=== PATIENT | female | born 1985 | race Caucasian/White ===

== ENCOUNTER 2016-09-21 12:05 | Day surgery (SDC) | payer BC, OTHER ==
[~2016-09-21 12:05] MED LIST: PRENATAL 19 TA1 EACH PO; PROAIR HFA8.5 GM; SINGULAIR10 M1 PO; XOPENEX HFA15 G1 INH; XYZAL5 M1 PO
[2016-09-21 13:12] LABS: ANION GAP 11 mmol/L (0-20); BLOOD UREA NITROGEN 7 mg/dl (6-24); CALCIUM 8.7 mg/dl (8.5-10.5); CARBON DIOXIDE-VENOUS 25 mmol/L (22-32); CHLORIDE 106 mmol/l (96-110); CREATININE 0.82 mg/dl (0.50-1.10); GLUCOSE 90 mg/dL (70-110); SODIUM 138 mmol/L (135-145); eGFR VALUE FOR BLACK >90 mL/Min
[2016-09-21 13:14] LABS: POTASSIUM 4.3 mmol/L (3.7-5.1)
== END 2016-09-21 15:12 ==
LOC: ENDOS 12:05 → SHSC 12:10 → ENDOS 13:50
PROVIDERS: Anesthesiology
PROC: 0DB88ZX Excision of Small Intestine, Via Natural or Artificial Opening Endoscopic, Diagnostic (ICD-10-PCS; principal; 2016-09-21)
PROC: 0DBE8ZX Excision of Large Intestine, Via Natural or Artificial Opening Endoscopic, Diagnostic (ICD-10-PCS; 2016-09-21)
DX: D12.8 Benign neoplasm of rectum (principal); D72.820 Lymphocytosis (symptomatic); K64.8 Other hemorrhoids; Z79.899 Other long term (current) drug therapy